=== PATIENT | male | born 1965 | race African-American/Black ===

== ENCOUNTER 2016-12-13 11:08 | Emergency (ER) | payer SELFPAY ==
[2016-12-13 11:38] VITALS: BP 128/98; PULSE 86; TEMP 98.2; BMI 27.3
--- NOTE | 2016-12-13 11:44 | PDOC ---
History of Present Illness - General Chief Complaint: Syncope/Near Syncope Stated Complaint: SYNCOPE/NEAR SYNCOPE Time Seen by Provider: 12/13/16 11:16 History Source: Patient Exam Limitations: No Limitations - History of Present Illness Initial Comments: 12/13/16 11:44 CHIEF COMPLAINT:Passed out PCP: No PCP HISTORY OF PRESENT ILLNESS: Patient is a 51-year-old male was brought in by gandy dancer from care home after he had one episode of syncope. A/c to the [employer] officers, patient was in the care home having a conversation with them, started having sweats during the heated conversation and suddenly passed out on his back and rolled on his stomach, passed out for <45 seconds and had urinary incontinence but no up rolling of eyes, tongue bite, shaking of the body. Patient mentions this is the first episode of syncope. Patient mentions he felt dizzy, was sweating, blurring of vision and passed out but after gaining consciousness denies headache, blurring of vision, palpitations, abdominal pain, nausea or vomiting. Recent Travel: None PAST MEDICAL HISTORY: [place] 10 years ago PAST SURGICAL HISTORY: As mentioned above Occupation: Nurse at [employer] Social History: Smokin/2 pack/day since 40 years Alcohol: Denies Drugs: Denies Family History:Unknown Allergies: NKDA Past History - Past Medical History Allergies/Adverse Reactions: Allergies Allergy/AdvReac Type Severity Reaction Status Date / Time No Known Allergies Allergy Verified 12/13/16 11:33 Home Medications: Ambulatory Orders NK [No Known Home Medication] 12/13/16 Other medical history: denies - Psycho/Social/Smoking Cessation Hx Suicidal Ideation: No Smoking History: Current every day smoker Number of Cigarettes Smoked Daily: 10 Information on smoking cessation initiated: Yes 'Breaking Loose' booklet given: 12/13/16 Substance Use Type: None Review of Systems - Review of Systems Able to Perform ROS?: Yes Comments:: 12/13/16 11:58 CONSTITUTIONAL:~ Absent: fever, chills, diaphoresis, generalized weakness, malaise, loss of appetite HEENT:~ Absent: rhinorrhea, nasal congestion, throat pain, throat swelling, difficulty swallowing, mouth swelling, ear pain, eye pain, visual Changes CARDIOVASCULAR:~ Absent: chest pain, syncope, palpitations, irregular heart rate, lightheadedness , peripheral edema RESPIRATORY:~ Absent: cough, shortness of breath, dyspnea with exertion, orthopnea, wheezing, stridor, hemoptysis GASTROINTESTINAL: Absent: abdominal pain, abdominal distension, nausea, vomiting, diarrhea, constipation, melena, hematochezia GENITOURINARY:~ Absent: dysuria, frequency, urgency, hesitancy, hematuria, flank pain, genital pain MUSCULOSKELETAL:~ Absent: myalgia, arthralgia, joint swelling SKIN:~ Absent: rash, itching, pallor HEMATOLOGIC/IMMUNOLOGIC:~ Absent: easy bleeding, easy bruising, lymphadenopathy, frequent infections ENDOCRINE: Absent: unexplained weight gain, unexplained weight loss, heat intolerance, cold intolerance NEUROLOGIC: Present: Passed out Absent: headache, focal weakness or paresthesias, dizziness, unsteady gait, seizure, mental status changes, bladder or bowel incontinence PSYCHIATRIC:~ Absent: anxiety, depression, suicidal or homicidal ideation, hallucinations. Is the patient limited Irish proficient: No *Physical Exam - Vital Signs Last Vital Signs Temp Pulse Resp BP Pulse Ox 98.2 F 86 16 128/98 97 12/13/16 11:33 12/13/16 11:33 12/13/16 11:33 12/13/16 11:33 12/13/16 11:33 - Physical Exam Comments: 12/13/16 11:59 PE: GENERAL: Awake, alert, and fully oriented, in no acute distress HEAD: No signs of trauma EYES: PERRLA, EOMI, sclera anicteric, conjunctiva clear ENT: Auricles normal inspection, hearing grossly normal, nares patent, oropharynx clear without exudates. Moist mucosa NECK: Normal ROM, supple, no lymphadenopathy, JVD, or masses LUNGS: Breath sounds equal, clear to auscultation bilaterally. No wheezes, and no crackles.. HEART: Regular rate and rhythm, normal S1 and S2, no murmurs, rubs or gallops ABDOMEN: Soft, nontender, normoactive bowel sounds. No guarding, no rebound. No masses EXTREMITIES: Normal range of motion, no edema. No clubbing or cyanosis. No cords, erythema, or tenderness NEUROLOGICAL: Cranial nerves II through XII grossly intact. Normal speech, Gait not observed SKIN: Warm, Dry, normal turgor, no rashes or lesions noted. Medical Decision Making - Medical Decision Making 12/13/16 11:45 Patient seen and examined at bed side. Vitals noted, unremarkable. Physical examination normal. Differential diagnosis of syncope: Seizure, sleep deprivation, structural brain lesions, dehydration, electrolyte imbalance, drugs Patient refused to perform any investigation. He doesn't want any kind of blood work or imaging to be done. Patient has been explained the illness, investigation and plan of care required for his illness. He verbalized understanding however refused further management. Patient wants to sign out AMA. He understands the risk of leaving including cardiac arrest and even . Patient has been advised to return to the Emergency Department immediately if symptoms persist or new symptoms develop or if he would like to get medical management. Case seen and discussed with Dr. Miner. *DC/Admit/Observation/Transfer Diagnosis at time of Disposition: Near syncope - Discharge Dispostion Disposition: AGAINST MEDICAL ADVICE Condition at time of disposition: Guarded
--- NOTE | 2016-12-13 11:49 | PDOC ---
Attending Attestation - Resident Resident Name: Margie Rivas - ED Attending Attestation I have performed the following: I have examined & evaluated the patient, The case was reviewed & discussed with the resident, I agree w/resident's findings & plan, Exceptions are as noted - HPI HPI: 12/13/16 11:47 Agree with the resident's HPI as documented in the electronic medical record. - Physicial Exam PE: 12/13/16 11:47 Agree with the resident's physical examination as documented in the electronic medical record. - Medical Decision Making 12/13/16 11:48 51-year-old male with history of hypertension and CT in the past who presents to the emergency department in police custody following a syncopal episode. Differential diagnosis includes but is not limited to: Cardiac arrhythmia, CT, ACS, electrolyte abnormality, dehydration, toxic/metabolic derangement, intoxication. I have had an extensive conversation with the patient surrounding his need for a workup including an EKG, labs, chest x-ray; however, the patient wants to leave AGAINST MEDICAL ADVICE (see AMA note).
== END 2016-12-13 11:52 | disposition left against medical advice (07) ==
LOC: JER 11:08
DX: R55 Syncope and collapse (principal)
CPT/HCPCS: 99282-25

== ENCOUNTER 2019-01-08 12:48 | Emergency (ER) | payer SELFPAY ==
[2019-01-08 13:03] VITALS: BP 133/96; PULSE 76; TEMP 97.2; BMI 26.6
[2019-01-08 14:48] LABS: BASO % 1.1 % (0-2.0); EOS % 2.1 % (0-4.5); HEMATOCRIT 46.6 % (35.4-49); HEMOGLOBIN 15.9 GM/dL (11.7-16.9); LYMPH % 40.2 % (8-40); MCH 30.3 pg (25.7-33.7); MEAN CELL VOLUME 89.1 fl (80-96); MEAN PLT VOLUME 8.5 fl (7.5-11.1); MONO % 6.6 % (3.8-10.2); PLATELET COUNT 272 K/MM3 (134-434); RBC 5.23 M/mm3 (4.00-5.60); RDW 14.3 % (11.9-15.9); WHITE BLOOD COUNT 5.1 K/mm3 (4.0-10.0)
[2019-01-08 15:26] LABS: ALBUMIN 3.9 g/dl (3.4-5.0); ALK PHOS 78 U/L (45-117); ANION GAP 5 MMOL/L (8-16); BILIRUBIN,TOTAL 0.5 mg/dL (0.2-1); BLOOD UREA NITROGEN 19 mg/dL (7-18); CALCIUM 9.2 mg/dL (8.5-10.1); CHLORIDE 108 mmol/L (98-107); CO2 28 mmol/L (21-32); GLUCOSE,RANDOM 86 mg/dL (74-106); POTASSIUM 4.7 mmol/L (3.5-5.1); SGOT/AST 24 U/L (15-37); SGPT/ALT 27 U/L (13-61); SODIUM 141 mmol/L (136-145); TOT PROT 7.3 g/dl (6.4-8.2)
--- NOTE | 2019-01-08 15:26 | PDOC ---
History of Present Illness - General Chief Complaint: Chest Pain Stated Complaint: CHEST PAIN X 1 DAY Time Seen by Provider: 01/08/19 13:58 History Source: Patient Exam Limitations: No Limitations - History of Present Illness Initial Comments: 01/08/19 15:19 Pt is a 53yo M with no significant PMH presenting to ED with chest pain day. Pt states the pain started last night, feels like a tightness and stabbing. He has had similar symptoms before but he is worried because he went to two funerals on Monday and he wants to make sure everything is ok. He also endorses SOB upon exertion which has been going on for the past few years. He denies cough, congestion, pain radiating to the back, headache, syncope, numbness/tingling, diaphoresis, leg swelling, recent surgeries, recent travel, history of clots. Grandparents had NH in their 70s. Denies symptoms at this time. PMD: none PMH: none PSH: none Allergies: nkda Social: smokes 4 cigarettes/day Past History - Past Medical History Allergies/Adverse Reactions: Allergies Allergy/AdvReac Type Severity Reaction Status Date / Time No Known Allergies Allergy Verified 01/08/19 13:00 Home Medications: Ambulatory Orders NK [No Known Home Medication] 12/13/16 COPD: No - Suicide/Smoking/Psychosocial Hx Smoking History: Current every day smoker Have you smoked in the past 12 months: Yes Number of Cigarettes Smoked Daily: 5 Information on smoking cessation initiated: No 'Breaking Loose' booklet given: 12/13/16 Hx Alcohol Use: No Drug/Substance Use Hx: No Substance Use Type: None Review of Systems - Review of Systems Constitutional: No: Symptoms Reported HEENTM: No: Symptoms Reported Respiratory: Yes: See HPI Cardiac (ROS): Yes: See HPI ABD/GI: No: Symptoms Reported : No: Symptoms Reported Musculoskeletal: No: Symptoms Reported Integumentary: No: Symptoms Reported Neurological: No: Symptoms reported *Physical Exam - Vital Signs Last Vital Signs Temp Pulse Resp BP Pulse Ox 97.2 F L 76 18 133/96 100 01/08/19 13:01 01/08/19 13:01 01/08/19 13:01 01/08/19 13:01 01/08/19 13:01 - Physical Exam General Appearance: Yes: Nourished, Appropriately Dressed. No: Apparent Distress HEENT: positive: EOMI, JOHN, Normal ENT Inspection Neck: positive: Trachea midline, Supple. negative: Lymphadenopathy (R), Lymphadenopathy (L) Respiratory/Chest: positive: Lungs Clear, Normal Breath Sounds. negative: Crackles, Wheezing Cardiovascular: positive: Regular Rhythm, Regular Rate, S1, S2. negative: Edema , JVD, Murmur Vascular Pulses: Carotid (R): 2+, Carotid (L): 2+, Dorsalis-Pedis (R): 2+, Doralis-Pedis (L): 2+ Gastrointestinal/Abdominal: positive: Normal Bowel Sounds, Soft. negative: Tender Musculoskeletal: negative: CVA Tenderness Extremity: positive: Normal Capillary Refill, Pelvis Stable. 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, Fully Oriented, Alert, Normal Mood/ Affect, Normal Response, Motor Strength 02/17 ED Treatment Course - LABORATORY CBC & Chemistry Diagram: 01/08/19 14:25 01/08/19 14:25 - ADDITIONAL ORDERS Additional order review: Laboratory Results 01/08/19 14:25 PTT (Actin FS) 36.9 H 01/08/19 14:25 RBC 5.23 MCV 89.1 MCHC 34.0 RDW 14.3 MPV 8.5 Neutrophils % 50.0 Lymphocytes % 40.2 H Monocytes % 6.6 Eosinophils % 2.1 Basophils % 1.1 - RADIOLOGY Radiology Studies Ordered: Category Date Time Status CHEST PA & LAT [RAD] Stat Radiology 01/08/19 14:23 Taken Medical Decision Making - Medical Decision Making 01/08/19 15:23 Pt is a 53yo M with no significant PMH presenting to ED with chest pain . Pt states the pain started last night, feels like a tightness and stabbing. He has had similar symptoms before but he is worried because he went to two funerals on Monday and he wants to make sure everything is ok. He also endorses SOB upon exertion which has been going on for the past few years. He denies cough, congestion, pain radiating to the back, headache, syncope, numbness/tingling, diaphoresis, leg swelling, recent surgeries, recent travel, history of clots. Grandparents had NH in their 70s. Denies symptoms at this time. Vitals: wnl PE: benign ddx includes but not limited to: acs, pe, dissection, -cbc, cmp, trop, coags -cxr, ekg -pt not having symptoms at this time all labs wnl. will order second trop. 2nd trop normal. will dc home. given referral to cardiology. given return precautions. 01/09/19 00:22 *DC/Admit/Observation/Transfer Diagnosis at time of Disposition: Chest pain Qualifiers: Chest pain type: unspecified Qualified Code(s): R07.9 - Chest pain, unspecified - Discharge Dispostion Disposition: HOME Condition at time of disposition: Good Decision to Admit order: No - Referrals Referrals: Arturo Abreu MD [Staff Physician] - - Patient Instructions Printed Discharge Instructions: DI for Atypical Chest Pain Additional Instructions: You were seen in the emergency room today for chest pain. I do not know the exact cause but it could be muscular or skeletal. The blood work was normal, the Xray is normal and the EKG is also normal. I recommend that you start seeing a primary care doctor and a gang worker. You can see Dr. Abreu You can take Tylenol or ibuprofen for the pain as needed. Come back to the emergency room if pain gets worse, you have a hard time breathing, you have palpitations, you pass out or if any new concerning symptom develops. Thank you - Post Discharge Activity Forms/Work/School Notes: Back to Work
--- NOTE | 2019-01-08 15:35 | PDOC ---
Attending Attestation - Resident Resident Name: BriannaSaBrandy - ED Attending Attestation I have performed the following: I have examined & evaluated the patient, The case was reviewed & discussed with the resident, I agree w/resident's findings & plan, Exceptions are as noted - HPI HPI: 01/08/19 15:33 The patient is a 53 year old male, with a significant past medical history of hypertension and AL, who presents to the emergency department with intermittent chest tightness to the right of his chest. He states these pains have been going on for weeks. However, he went to on Monday and noticed more persistent pain over the past 2 days. He denies pain radiation. He denies numbness or tingling. The patient denies shortness of breath, headache and dizziness. The patient denies fever, chills, nausea, vomit, diarrhea and constipation. The patient denies dysuria, frequency, urgency and hematuria. Allergies: NKDA Family Hx: Grandparents MIs (70s) PCP: - Physicial Exam PE: 01/08/19 15:34 "GENERAL: Awake, alert, and fully oriented, in no acute distress. HEAD: No signs of trauma EYES: PERRLA, EOMI, sclera anicteric, conjunctiva clear ENT: Auricles normal inspection, hearing grossly normal, nares patent, oropharynx clear without exudates. Moist mucosa NECK: Nontender, no stepoffs, Normal ROM, supple, no lymphadenopathy, JVD, or masses LUNGS: Breath sounds equal, clear to auscultation bilaterally. No wheezes, and no crackles HEART: Regular rate and rhythm, normal S1 and S2, no murmurs, rubs or gallops ABDOMEN: Soft, nontender, normoactive bowel sounds. No guarding, no rebound. No masses EXTREMITIES: Normal range of motion, no edema. No clubbing or cyanosis. No cords, erythema, or tenderness NEUROLOGICAL: Cranial nerves II through XII intact. 5/5 strength and sensation in all extremities, Normal speech, normal gait, normal cerebellar function SKIN: Warm, Dry, normal turgor, no rashes or lesions noted. - Medical Decision Making 01/08/19 15:34 53 M with intermittent chest pain x 2 weeks. EKG nonischemic. Will r/o ACS with serial trops. pt with no PE risk factors, wells score 0. No tearing pain, uneven pulses, or radiation of pain to the back to suggest dissection. - Labs, trop - CXR 01/08/19 17:32 Labs wnl Trop negative x2 CXR clear Will DC with cards f/u Pt is well appearing, with normal vitals. Clinically stable for DC at this time. I discussed the physical exam findings, ancillary test results and final diagnoses with the patient. I answered all of the patient's questions. The patient was satisfied with the care received and felt comfortable with the discharge plan and treatment plan. The patient agrees to follow up with the primary care physician within 24-72 hours.
--- NOTE | 2019-01-08 21:57 | EKG ---
Test Reason : Blood Pressure : / mmHG Vent. Rate : 072 BPM Atrial Rate : 072 BPM P-R Int : 134 ms QRS Dur : 072 ms QT Int : 352 ms P-R-T Axes : 068 062 059 degrees QTc Int : 385 ms NORMAL SINUS RHYTHM NORMAL ECG NO PREVIOUS ECGS AVAILABLE Confirmed by MD JASEN, DEYSI ([id number]) on 01/08/2019 9:57:04 PM Referred By: Confirmed By:DEYSI AGGARWAL MD
== END 2019-01-08 18:01 | disposition home or self-care (01) ==
LOC: JER 12:48
DX: R07.9 Chest pain, unspecified (principal); F17.210 Nicotine dependence, cigarettes, uncomplicated
CPT/HCPCS: 36415; 71046-TC-FY; 80053; 83735; 84484; 85025; 85730; 93005; 93010; 99283-25

== ENCOUNTER 2021-09-01 11:30 | Emergency (ER) | payer SELFPAY ==
[2021-09-01 11:44] VITALS: BP 125/92; PULSE 78; TEMP 97.6; BMI 26.6
== END 2021-09-01 12:19 | disposition home or self-care (01) ==
LOC: JERFT 11:30
DX: R03.0 Elevated blood-pressure reading, without diagnosis of hypertension (principal)
CPT/HCPCS: 93005; 93010; 99283-25